=== PATIENT | female | born 1945 | race Caucasian/White ===

== ENCOUNTER → 2017-06-25 08:47 | Outpatient (CLI) | payer MEDICARE, OTHER, SELFPAY ==
--- NOTE | 2017-06-25 08:52 | HPBI_ITS ---
MAMMOGRAPHY - UNILATERAL DIAGNOSTIC: RIGHT BREAST REASON FOR EXAM: Female, 71 years old. Six-month follow-up examination of a nodular density in the right breast. PERTINENT HISTORY: Non-contributory. TECHNIQUE: Digital unilateral breast mario (3D mammographic acquisition) in the CC and MLO projections. 2-D mediolateral oblique (MLO) and craniocaudad (CC) views of both breasts were obtained. CAD: Full Field Digital Mammography with Computer Added Detection was performed. COMPARISON: Comparison is made with prior outside examination in January 04, 2017. FINDINGS: Breast Composition: There are scattered areas of fibroglandular density. There are no dominant masses or suspicious calcifications. There is a persistent 6.1 mm x 6.8 mm slightly irregular nodule in the upper central portion of the right breast. Correlation with ultrasound is recommended. A biopsy may be indicated. No other significant abnormalities are identified. There has been no significant change since the prior study. HPBI/DIAG MAMM W/CAD, UNILAT IMPRESSION: Persistent nodular density in the upper central portion of the right breast as described. Correlation with ultrasound is recommended. ASSESSMENT CATEGORY: BIRADS Category 0: Incomplete. Need additional imaging evaluation. A letter regarding these results will be sent to the patient by the facility within 30 days. Approximately 10% of breast cancers are not detected by mammography. A normal mammogram should not delay biopsy of a clinically suspicious abnormality. Electronically Signed: Jonathan Phillips MD at 10:03 EST Tel [phone], Service support ,
--- NOTE | 2017-06-25 08:53 | US_ITS ---
STUDY: ULTRASOUND BREAST - RIGHT REASON FOR EXAM: Female, 71 years old. Abnormal screening mammogram. TECHNIQUE: Axial and longitudinal images of the RIGHT breast were performed with a high resolution ultrasound transducer. COMPARISON: Comparison is made with prior mammogram done earlier in day. FINDINGS: RIGHT Breast: The 10 to 12:00 position of the breast was examined by ultrasound. Mild retroareolar ductal dilatation. No solid or cystic mass lesion is seen. With the abnormality seen on the mammogram, a biopsy is recommended. US/Breast Limited Unilateral IMPRESSION: Unremarkable ultrasound of the breast. A biopsy of the irregularity seen on the mammogram is recommended. ASSESSMENT CATEGORY: BIRADS Category 4: Suspicious - Biopsy Should Be Considered. A letter regarding these results will be sent to the patient by the facility within 30 days. Electronically Signed: Jonathan Phillips MD at 12:31 EST Tel [phone], Service support ,
== END ==
PROVIDERS: Family Provider Family Medicine; PCP Family Medicine; Visit Provider Family Medicine
DX: R92.8 Other abnormal and inconclusive findings on diagnostic imaging of breast (principal)
CPT/HCPCS: 76642; 77061; 77065; G0279

== ENCOUNTER → 2017-07-19 09:19 | Outpatient (CLI) | payer MEDICARE, OTHER, SELFPAY ==
--- NOTE | 2017-07-19 11:30 | BRBX_PTH ---
PATIENT: CHASTITY SORENSEN LOC: [facility] U#:[id number] AGE/SX: 79/F ROOM: RE07/19/[address]: Dr. Landry Cisneros MD : 1945 BED: DIS: SPEC #: [id number] RECD: 07/19/17 13:51 STATUS: TONNY YARELIS #: [id number] DEBBIE: 07/19/17 11:[address]: Landry Cisneros DEPT: SURGICAL PATHOLOGY RECD BY: Rashad Dexter ENTERED: 07/19/17 13:51 SP TYPE: BREAST BX OTHR DR: Dr. Dianna Alvarez MD Tissues: Right breast, NOS Procedures: Surgery Specimen Level IV HEADER OPERATION: Right stereotactic breast biopsy PRE-OP DIAGNOSIS: Right breast upper central density TISSUE SUBMITTED: Right breast core tissue ISCHEMIC TIME: 1 minute FIXATION TIME: 8 hours MICROSCOPIC DIAGNOSIS Right breast, stereotactic needle core biopsy: Fibrocystic change. Focal intraductal hyperplasia without atypia. No evidence of malignancy. AM:umesh 07/20/17 MICROSCOPIC DESCRIPTION Slides are reviewed. GROSS DESCRIPTION Received is one container labeled with the patient's name and not further designated. The specimen consists of multiple elongated fragments of colyb-yellow fibroadipose tissue that in aggregate measure 7.5 x 3 x 0.3 cm. The entire specimen is submitted in three cassettes. / SJ:umesh 07/19/17 TC:5 CPT: 60607
--- NOTE | 2017-07-19 11:56 | PCM.OPRPT ---
Problem List (1) Abnormal mammogram of right breast Status: Acute Report of Operation Date of Procedure: 07/19/17 Pre-Operative Diagnosis: Mammographic density upper mid right breast Post-Operative Diagnosis: Mammographic density upper mid right breast Surgery/Procedure Performed:: Stereotactic needle core upper mid right breast biopsy Description of Surgical Findings:: Timeout and informed consent was obtained. 72-year-old female was taken to the stereotactic room. She was placed prone on the table. The right breast was placed in the cc view. The density in question was rapidly identified. Stereotactic images were obtained. Digital information was obtained on a single target sites. The breast was prepped with Betadine. 1% lidocaine was used as a local anesthetic. A total of 10 cc was used. Local was instilled. A small stab incision was created. An 8-gauge resolve needle was advanced to prefire depth. Prefire films were obtained demonstrating adequate localization. The device was fired. Multiple cores were obtained from 8:00 through 4:00. Good sampling was achieved. A small marking clip was left at the 12 o'clock position. She was released from the device. Pressure was held for hemostasis. The specimens were transmitted to formalin. Follow-up CC and mediolateral oblique views were obtained. She was given activity and wound care instructions as Steri-Strips Telfa OpSite dressing applied. Further office follow-up can be pending pathology. Progress and prognosis at this point are felt to be good. Findings are likely to be benign and likely recommendations for follow-up mammography at 1 year will be pursued pending pathology. Landry Cisneros M.D., F.A.C.S. Type of Anesthesia:: Local
== END ==
PROVIDERS: Family Provider Family Medicine; PCP Family Medicine; Visit Provider Surgery
DX: N60.11 Diffuse cystic mastopathy of right breast (principal); N60.91 Unspecified benign mammary dysplasia of right breast; R92.8 Other abnormal and inconclusive findings on diagnostic imaging of breast
CPT/HCPCS: 19081; 88305; J7050

== ENCOUNTER → 2018-01-18 09:15 | Outpatient (CLI) | payer MEDICARE, OTHER, SELFPAY | PROVIDERS: Family Provider Family Medicine; PCP Family Medicine; Visit Provider Family Medicine | DX: Z12.31 Encounter for screening mammogram for malignant neoplasm of breast (principal); Z78.0 Asymptomatic menopausal state; Z13.820 Encounter for screening for osteoporosis | CPT/HCPCS: 77063; 77067; 77080 ==

== ENCOUNTER → 2018-09-21 15:41 | Outpatient (CLI) | payer MEDICARE, OTHER, SELFPAY ==
[2017-07-06 09:11] VITALS: BMI 25.8
[2018-09-21 18:29] LABS: CRP < 2.90 mg/L (0.0-3.0)
[2018-09-23 16:07] LABS: Endomysial Antibody IgA Negative (Negative)
[2018-09-26 13:50] LABS: Immunoglobulin A 210 mg/dL (64-422); t-Transglutaminase IgA <2 U/mL (0-3)
== END ==
PROVIDERS: Family Provider Family Medicine; PCP Family Medicine; Referring Provider Internal Medicine Gastroenterology; Visit Provider Internal Medicine Gastroenterology
DX: R10.9 Unspecified abdominal pain (principal); R19.7 Diarrhea, unspecified
CPT/HCPCS: 36415; 82784; 83516; 86140; 86255

== ENCOUNTER → 2019-01-20 | Outpatient (CLI) | payer MEDICARE, OTHER, SELFPAY ==
--- NOTE | 2019-01-20 10:42 | BI_ITS ---
MAMMOGRAPHY - BILATERAL SCREENING REASON FOR EXAM: Female, 73 years old. Routine annual screening examination. PERTINENT HISTORY: Mother with breast cancer. Prior right stereotactic biopsy. TECHNIQUE: Digital bilateral breast quentin (3D mammographic acquisition) in the CC and MLO projections. 2-D mediolateral oblique (MLO) and craniocaudad (CC) views of both breasts were obtained. CAD: Full Field Digital Mammography with Computer Added Detection was performed. COMPARISON: Comparison is made with prior examination dated January 18, 2018 and June 25, 2007. FINDINGS: Breast Composition: There are scattered areas of fibroglandular density. There are no dominant masses or suspicious calcifications. There is a 7.6 mm x 9 mm well-defined nodule in the central deep portion of the left breast. Ultrasound is recommended for further evaluation. A tissue clip marker is seen within a 90 density in the upper central portion of the right breast. No other significant abnormalities are identified. BI/SCREEN MAMM (CAD) W/QUENTIN BILAT IMPRESSION: 7.6 mm x 9 mm well-defined nodule in the central deep portion of the left breast. Correlation with ultrasound is recommended. ASSESSMENT CATEGORY: BIRADS Category 0: Incomplete. Need additional imaging evaluation. A letter regarding these results will be sent to the patient by the facility within 30 days. Approximately 10% of breast cancers are not detected by mammography. A normal mammogram should not delay biopsy of a clinically suspicious abnormality. [id number] Electronically Signed: Jonathan Phillips, at 12:33 EDT , Service support ,
== END | disposition home or self-care (01) ==
LOC: OPBI 10:41
PROVIDERS: Family Provider Family Medicine; PCP Family Medicine; Referring Provider Family Medicine; Visit Provider Family Medicine
DX: Z12.31 Encounter for screening mammogram for malignant neoplasm of breast (principal); Z80.3 Family history of malignant neoplasm of breast
CPT/HCPCS: 77063; 77067

== ENCOUNTER → 2019-01-25 | Outpatient (CLI) | payer MEDICARE, OTHER, SELFPAY ==
--- NOTE | 2019-01-25 14:48 | US_ITS ---
STUDY: ULTRASOUND BREAST - LEFT REASON FOR EXAM: Female, 73 years old. Abnormal screening mammogram. TECHNIQUE: Axial and longitudinal images of the LEFT breast were performed with a high resolution ultrasound transducer. COMPARISON: Comparison is made with prior study dated January 20, 2019. FINDINGS: LEFT Breast: The mammographic abnormality corresponds to retroareolar ductal dilatation. No solid or cystic mass lesion is seen. US/Breast Limited Unilateral IMPRESSION: Retroareolar ductal dilatation. ASSESSMENT CATEGORY: BIRADS Category 2: Benign. A letter regarding these results will be sent to the patient by the facility within 30 days. Electronically Signed: Jonathan Phillips, at 15:35 EDT , Service support ,
== END | disposition home or self-care (01) ==
PROVIDERS: Family Provider Family Medicine; PCP Family Medicine; Referring Provider Family Medicine; Visit Provider Family Medicine
DX: R92.8 Other abnormal and inconclusive findings on diagnostic imaging of breast (principal)
CPT/HCPCS: 76642

== ENCOUNTER → 2020-01-23 10:14 | Outpatient (CLI) | payer MEDICARE, OTHER, SELFPAY ==
--- NOTE | 2020-01-23 10:19 | BI_ITS ---
MAMMOGRAPHY - BILATERAL SCREENING REASON FOR EXAM: Female, 74 years old. Routine annual screening examination. PERTINENT HISTORY: Mother with breast cancer. Prior right stereotactic breast biopsy. TECHNIQUE: Digital bilateral breast quentin (3D mammographic acquisition) in the CC and MLO projections. 2-D mediolateral oblique (MLO) and craniocaudad (CC) views of both breasts were obtained. CAD: Full Field Digital Mammography with Computer Added Detection was performed. COMPARISON: Comparison is made with prior study dated 01/20/2019 and 01/18/2018. FINDINGS: Breast Composition: There are scattered areas of fibroglandular density. There are no dominant masses or suspicious calcifications. Stable 9 mm x 7.6 mm well-defined nodule in the central deep portion of the left breast. Repeat ultrasound is recommended for further evaluation. A tissue clip marker is once again seen within a small nodular density in the central portion of the right breast. No other significant abnormalities are identified. There has been no significant change since the prior study. BI/SCREEN MAMM (CAD) W/QUENTIN BILAT IMPRESSION: Stable bilateral screening mammogram. Repeat sonogram of the left breast for assessment of the centrally located nodule as described. ASSESSMENT CATEGORY: BIRADS Category 0: Incomplete. Need additional imaging evaluation. A letter regarding these results will be sent to the patient by the facility within 30 days. Approximately 10% of breast cancers are not detected by mammography. A normal mammogram should not delay biopsy of a clinically suspicious abnormality. [id number] Electronically Signed: Jonathan Phillips, at 12:40 EDT , Service support ,
== END ==
PROVIDERS: PCP Family Medicine; Referring Provider Family Medicine; Visit Provider Family Medicine
DX: Z12.31 Encounter for screening mammogram for malignant neoplasm of breast (principal)
CPT/HCPCS: 77063; 77067

== ENCOUNTER → 2020-01-30 10:44 | Outpatient (CLI) | payer MEDICARE, OTHER, SELFPAY ==
--- NOTE | 2020-01-30 10:45 | US_ITS ---
STUDY: ULTRASOUND BREAST - LEFT REASON FOR EXAM: Female, 74 years old. Abnormal screening mammogram. TECHNIQUE: Axial and longitudinal images of the LEFT breast were performed with a high resolution ultrasound transducer. # OF IMAGES: 41 COMPARISON: Comparison is made with prior mammogram dated 01/23/2020. FINDINGS: LEFT Breast: The mammographic abnormality corresponds to a 7 mm x 9 mm x 4 mm hypoechoic nodular density. This is not a typical cyst. A biopsy is recommended for further evaluation. Incidental note is made of dilated retroareolar ducts. US/Breast Limited Unilateral IMPRESSION: 7 mm x 9 mm x 4 mm hypoechoic solid nodule in the inferior retroareolar region of the breast. A biopsy is recommended for further evaluation. ASSESSMENT CATEGORY: BIRADS Category 4: Suspicious - Biopsy Should Be Considered. A letter regarding these results will be sent to the patient by the facility within 30 days. Electronically Signed: Jonathan Phillips, at 13:09 EDT , Service support ,
== END ==
PROVIDERS: PCP Family Medicine; Referring Provider Family Medicine; Visit Provider Family Medicine
DX: R92.8 Other abnormal and inconclusive findings on diagnostic imaging of breast (principal)
CPT/HCPCS: 76642

== ENCOUNTER → 2020-02-15 10:05 | Outpatient (CLI) | payer MEDICARE, OTHER, SELFPAY ==
[2020-02-12 13:31] VITALS: BMI 27.3
--- NOTE | 2020-02-15 10:38 | PCM.HP.BLA ---
Problem List (1) Abnormal mammogram of left breast Status: Acute History and Physical Date of Admission: 02/15/20 Intake Visit Reasons: BIRADS 4 LEFT BREAST Chief Complaint: left birads 4 Collection Agent Required: No Is patient in pain?: No Allergies Sulfa (Sulfonamide Antibiotics) Allergy (Intermediate, Verified 02/12/20 14:26) Nausea metronidazole [From Flagyl] Allergy (Mild, Verified 02/12/20 14:26) rash Medications antiarthritic combination no.2 900 mg tablet mg PO .daily ea 07/06/17 [History Confirmed 02/12/20] cholecalciferol (vitamin D3) 50 mcg (2,000 unit) capsule 2,000 unit PO QDAY cap 07/06/17 [History Confirmed 02/12/20] coenzyme [id number] E 100 mg-100 unit capsule cap PO .daily 07/06/17 [History Confirmed 02/12/20] hydrochlorothiazide 25 mg tablet 25 mg PO QAM 07/06/17 [History Confirmed 02/12/20] lovastatin 20 mg tablet 20 mg PO QDAY 07/06/17 [History Confirmed 02/12/20] multivitamin 1 cap PO QAM 07/06/17 [History Confirmed 02/12/20] Is last menstrual period known: No Post menopausal: Yes Patient : No PFSH Medical History Abnormal mammogram of right breast (Acute) Abnormal mammogram (Acute) Hypertension (Chronic) Surgical History History of laparoscopic cholecystectomy (Acute) History of total abdominal hysterectomy (Acute) S/P breast biopsy (Acute) history excision lipoma left flank (Acute) Family History Father Heart disease Mother Breast cancer Cancer ovarian cancer Social History (Updated 02/12/20 @ 16:[address] Landry Cisneros MD) Smoking Status: Never smoker alcohol intake: never substance use type: does not use HPI HPI HPI: CHASTITY SORENSEN, is a 74 F who presents to the office today for surgical consultation regarding an abnormal left mammogram and breast ultrasound. The patient is referred by Dr. Dianna Alvarez and a written copy of my surgical consult and recommendations will be returned to her. 74-year-old female. G2, . Menarche was at age 17. First child was born when she was 22. She did not breast-feed. Her mother developed breast cancer at approximately age 35 and she succumbed to it. The patient's not any breast tenderness. No nipple discharge or bleeding. She reminds me that I have previously done a stereotactic needle core biopsy on the right upper mid. That tissue was benign. The patient states that intermittently she will have discomfort. She was wondering whether the clip could be removed. As noted below on January 23, 2020 left breast showed a stable 9 x 7.6 mm well-defined nodule central portion of the left breast. Tissue marker seen with a small nodular density on the right unchanged. On October 29 left breast ultrasound was performed showing a 7 x 9 x 4 mm hypoechoic solid nodule in the inferior retroareolar area of the left breast BI-RADS Category 4 biopsy recommended. [facility] [address] [place] [address] SCREEN MAMM (CAD) W/QUENTIN BILAT MR#: [id number]:[id number] Name: CHASTITY SORENSEN #:[id number] : [id number] From: Jonathan Phillips MD PCP:Dr. Dianna Alvarez MD Status:[facility] [address] Study:SCREEN MAMM (CAD) W/QUENTIN BILAT Date of Exam:01/23/20 Exam#[id number] Ordering Dr: Dianna Alvarez MD MAMMOGRAPHY - BILATERAL SCREENING REASON FOR EXAM: Female, 74 years old. Routine annual screening examination. PERTINENT HISTORY: Mother with breast cancer. Prior right stereotactic breast biopsy. TECHNIQUE: Digital bilateral breast quentin (3D mammographic acquisition) in the CC and MLO projections. 2-D mediolateral oblique (MLO) and craniocaudad (CC) views of both breasts were obtained. CAD: Full Field Digital Mammography with Computer Added Detection was performed. COMPARISON: Comparison is made with prior study dated 01/20/2019 and 01/18/2018. FINDINGS: Breast Composition: There are scattered areas of fibroglandular density. There are no dominant masses or suspicious calcifications. Stable 9 mm x 7.6 mm well-defined nodule in the central deep portion of the left breast. Repeat ultrasound is recommended for further evaluation. A tissue clip marker is once again seen within a small nodular density in the central portion of the right breast. No other significant abnormalities are identified. There has been no significant change since the prior study. BI/SCREEN MAMM (CAD) W/QUENTIN BILAT IMPRESSION: Stable bilateral screening mammogram. Repeat sonogram of the left breast for assessment of the centrally located nodule as described. ASSESSMENT CATEGORY: BIRADS Category 0: Incomplete. Need additional imaging evaluation. A letter regarding these results will be sent to the patient by the facility within 30 days. Approximately 10% of breast cancers are not detected by mammography. A normal mammogram should not delay biopsy of a clinically suspicious abnormality. [id number] Electronically Signed: Jonathan Phillips, at 12:40 EDT , Service support , [facility] Imaging Services [address] [place] [id number] Breast Limited Unilateral MR#: [id number]:[id number] Name: CHASTITY SORENSENmiguel #:[id number] : 1946F [id number] From: Jonathan Phillips MD PCP:Dr. Dianna Alvarez MD Status:[facility] Study:Breast Limited Unilateral Date of Exam:01/30/20 Exam#[id number] Ordering Dr: Dianna Alvarez MD STUDY: ULTRASOUND BREAST - LEFT REASON FOR EXAM: Female, 74 years old. Abnormal screening mammogram. TECHNIQUE: Axial and longitudinal images of the LEFT breast were performed with a high resolution ultrasound transducer. # OF IMAGES: 41 COMPARISON: Comparison is made with prior mammogram dated 01/23/2020. FINDINGS: LEFT Breast: The mammographic abnormality corresponds to a 7 mm x 9 mm x 4 mm hypoechoic nodular density. This is not a typical cyst. A biopsy is recommended for further evaluation. Incidental note is made of dilated retroareolar ducts. US/Breast Limited Unilateral IMPRESSION: 7 mm x 9 mm x 4 mm hypoechoic solid nodule in the inferior retroareolar region of the breast. A biopsy is recommended for further evaluation. ASSESSMENT CATEGORY: BIRADS Category 4: Suspicious - Biopsy Should Be Considered. A letter regarding these results will be sent to the patient by the facility within 30 days. Electronically Signed: Jonathan Phillips, at 13:09 EDT , Service support , HPI HPI HPI: CHASTITY SORENSEN, is a 74 F who presents to the office today for ROS General General: No weight change, appetite, fatigue, colon cancer, breast cancer or weakness HEENT HEENT: No difficulty swallowing, eye injury, eye surgery, swollen glands or hoarseness Endo Endocrine: No thyroid disease, diabetes mellitus, thyroid cancer, Hair loss, heat intolerance or cold intolerance Breast Breast: Yes abnormal mammogram and abnormal US; no left breast lump, right breast lump, nipple discharge, breast pain or breast enlargement Musc Musculoskeletal: No back problems, arthritis, rheumatoid arthritis, gout or joint pain Cardio Cardiovascular: Yes high blood pressure; no murmur, pacemaker, heart disease, atrial fibrillation, heart attack, heart stent, palpitations, shortness of breat with exertion or chest pain Psych Psychiatric: No depression, anxiety or hearing voices Resp Respiratory: No shortness of breath, No sleep apnea, No cough, No COPD, No asthma, No emphysema, No wheezing Gastro Gastrointestinal: No abdominal pain, No nausea or vomiting, No diarrhea, No constipation, No blood in stool, No acid reflux, No hemorrhoids, No ulcers, Yes gallbladder problem, No black,tarry stools [place] Hematologic: No blood thinners, No blood disorders, No bleeding, No anemia, No blood clots Neuro Neurologic: No weakness Exam Const General: cooperative, healthy appearing, comfortable, no acute distress Nutritional Appearance: average body habitus Orientation: alert, awake, oriented x3 HENMT Head: normal to inspection Chest Breast Palpation: No nipple discharge Other: Right breast: No focal mass. No nipple discharge. No axillary or clavicular adenopathy Left breast: No focal mass. No nipple discharge. No axillary or clavicular adenopathy Resp Effort & Inspection: normal respiratory effort Cardio Rate: regular rate Rhythm: regular rhythm Heart Sounds: no murmurs Office Procedures Biopsy Provider Documentation Ultrasound-guided fine-needle aspiration left breast inferior inferior areola. Timeout and informed consent was obtained. The patient was taken to the procedure room placed upon the table left shoulder roll was placed. The left breast was prepped with Betadine. Ultrasound was performed and tried to be compared to the preoperative ultrasound. This was technically difficult. I felt that the 9 mm oblong lesion identified on ultrasound was identified. There was a slightly more vague item identified which I could not get to remain consistently. The item that could be identified was treated with local anesthetic 1% lidocaine mixed 50-50 with 0.5% Marcaine I was able to advance an 18-gauge under ultrasound guidance and aspirate fluid and collapse of the lesion. However on reinspecting the mammogram and ultrasound I cannot be assured that the mammographic lesion actually correlates with the ultrasound area that I aspirated. There were no apparent complications. The fluid was a dark green and after instructions with the patient was discarded Biopsy Breast Biopsy: [id number] Breast Cyst Asp Procedure Time Out Time Out Informed consent given: Yes Consent signed: Yes Time out checklist: patient, procedure, site marked/identified, positioning of patient, supplies available, allergies confirmed, team agrees on procedure Time out staff in room: Yes Time out verified: Yes Time out date: 02/12/20 Time out time: 14:30 Assessment & Plan Problems 1. Abnormal mammogram of left breast R92.8 2. Abnormal ultrasound of breast R92.8 Plan Abnormal left mammogram and abnormal breast ultrasound. Although I was able to under ultrasound guidance aspirate a infra areolar cyst it is not clear to me that this correlates with the mammographic imaging. I recommended the patient a stereotactic needle core left breast biopsy. We have discussed the technique, benefit, risk, alternatives. No guarantees of success have been offered. The patient is aware that the procedure will be aborted if the previously identified mammographic image has resolved. The patient notes fleeting discomfort of the right breast. I cannot assure her that the small marking clip is the source. I have discussed with her technique of stereotactic vertical excision with subsequent excisional biopsy. As her discomfort in the right breast is intermittent fleeting it is my personal belief that this intervention and risk with outweigh the benefit. In no way can I confirm that is actually the clip causing her discomfort. She is aware that if a solid lesion is identified on the left that a marking clip will be placed. She concurs and approves. She has had an opportunity to ask and have questions answered. We will schedule and proceed at her discretion. The mammographic density is infra-areolar slightly more deeply placed left breast Copy Dr. Dianna Cisneros M.D., F.A.C.S. Orders Orders: Biopsy Today R92.8 Coding Level of Care Code Attention Pipe Fitter Supervisor Maintenance Diagnoses Abnormal mammogram of left breast R92.8 Abnormal ultrasound of breast R92.8 Additional Codes Biopsy - Breast Biopsy: 81213 Breast Cyst Asp () I have re-examined the patient. There are no clinical changes since date of exam. Procedure Criteria Procedure Type: Elective COVID Risk Discussion: The surgeon/proceduralist and patient have discussed in detail the risk of exposure to and/or potential harm posed by the COVID-19 virus with having a surgery/procedure at this time versus the risk of delaying the surgery/procedure. It is not possible to know either the risk of delaying the surgery or procedure or chance of getting an infection with perfect accuracy, but a joint decision was made between the patient and the surgeon/proceduralist to proceed at this time with the scheduled surgery/procedure as indicated on the consent form.
--- NOTE | 2020-02-15 11:25 | PCM.OPRPT ---
Problem List (1) Abnormal mammogram of left breast Status: Acute Report of Operation Date of Procedure: 02/15/20 Pre-Operative Diagnosis: Density left breast mammogram Post-Operative Diagnosis: Resolved density left breast mammogram subsequent to office performed ultrasound-guided fine-needle aspiration Surgery/Procedure Performed:: Aborted stereotactic needle core left breast biopsy as lesion of concern resolved Description of Surgical Findings:: 74-year-old female was taken to the stereotactic room placed prone on the table left breast was placed in the lateral medial view the density in question could not be identified so then a traditional left lateral mammogram was obtained. This demonstrated the density had resolved. It was there for felt that the ultrasound guided fine needle aspiration that was performed in the office 2 days prior had actually resolved the area of concern. The stereotactic procedure was aborted. Patient will obtain bilateral mammograms at 1 year. Landry Cisneros M.D., F.A.C.S.
--- NOTE | 2020-02-15 11:32 | BI_ITS ---
MAMMOGRAPHY - UNILATERAL DIAGNOSTIC: LEFT BREAST REASON FOR EXAM: Female, 74 years old. Left breast aspiration. PERTINENT HISTORY: Mother with breast cancer. TECHNIQUE: Digital unilateral breast mario (3D mammographic acquisition) in the CC and MLO projections. 2-D mediolateral oblique (MLO) and craniocaudad (CC) views of both breasts were obtained. CAD: Full Field Digital Mammography with Computer Added Detection was performed. COMPARISON: Comparison is made with prior mammogram dated 01/23/2020. FINDINGS: Breast Composition: There are scattered areas of fibroglandular density. The previously seen 9 mm x 7.6 mm well-defined nodule in the central portion of the left breast has been drained. No other significant abnormalities are identified. BI/DIAG MAMM W/CAD, UNILAT IMPRESSION: Successful drainage of the 9 mm x 7.6 mm nodule in the central deep portion of the left breast. ASSESSMENT CATEGORY: BIRADS Category 2: Benign. A letter regarding these results will be sent to the patient by the facility within 30 days. Approximately 10% of breast cancers are not detected by mammography. A normal mammogram should not delay biopsy of a clinically suspicious abnormality. Electronically Signed: Jonathan Phillips, at 13:00 EDT , Service support ,
== END ==
PROVIDERS: PCP Family Medicine; Referring Provider Surgery; Visit Provider Surgery
DX: R92.8 Other abnormal and inconclusive findings on diagnostic imaging of breast (principal)
CPT/HCPCS: 77065

== ENCOUNTER → 2021-04-17 13:53 | Outpatient (CLI) | payer MEDICARE, OTHER, SELFPAY ==
--- NOTE | 2021-04-17 13:57 | BI_ITS ---
MAMMOGRAPHY - BILATERAL SCREENING REASON FOR EXAM: Female, 75 years old. Routine annual screening examination. PERTINENT HISTORY: Non-contributory. TECHNIQUE: Digital bilateral breast quentin (3D mammographic acquisition) in the CC and MLO projections. 2-D mediolateral oblique (MLO) and craniocaudad (CC) views of both breasts were obtained. CAD: Full Field Digital Mammography with Computer Added Detection was performed. COMPARISON: Comparison is made with prior study dated 01/23/2020 and 01/20/2019. FINDINGS: Breast Composition: There are scattered areas of fibroglandular density. There are no dominant masses or suspicious calcifications. Tissue clip marker clips again seen within the faint nodular density in the upper central portion of the right breast. The previously seen 9 mm x 7.6 mm well-defined nodule in the central deep portion of the left breast is not seen at this time No other significant abnormalities are identified. There has been no significant change since the prior study. BI/SCRN MAMM (CAD)W/QUENTIN BILAT IMPRESSION: Stable bilateral screening mammogram. Yearly follow-up mammogram recommended. (A) ASSESSMENT CATEGORY: BIRADS Category 2: Benign. A letter regarding these results will be sent to the patient by the facility within 30 days. Approximately 10% of breast cancers are not detected by mammography. A normal mammogram should not delay biopsy of a clinically suspicious abnormality. [id number] Electronically Signed: Jonathan Phillips MD at 15:07 EST , Service support ,
== END ==
PROVIDERS: PCP Family Medicine; Visit Provider Family Medicine
DX: Z12.31 Encounter for screening mammogram for malignant neoplasm of breast (principal)
CPT/HCPCS: 77063; 77067

== ENCOUNTER → 2022-04-29 | Outpatient (CLI) | payer MEDICARE, OTHER, SELFPAY ==
--- NOTE | 2022-04-29 09:58 | BI_ITS ---
MAMMOGRAPHY - BILATERAL SCREENING REASON FOR EXAM: Female, 76 years old. Routine annual screening examination. PERTINENT HISTORY: Mother with breast cancer. Prior left stereotactic breast biopsy. TECHNIQUE: Digital bilateral breast quentin (3D mammographic acquisition) in the CC and MLO projections. 2-D mediolateral oblique (MLO) and craniocaudad (CC) views of both breasts were obtained. CAD: Full Field Digital Mammography with Computer Added Detection was performed. COMPARISON: Comparison is made with prior examination of 04/17/2021 and 01/23/2020. FINDINGS: Breast Composition: There are scattered areas of fibroglandular density. There are no dominant masses or suspicious calcifications. A tissue clip marker is once again seen within a faint nodular density in the upper central portion of the right breast. This most likely represents a small lymph node. No other significant abnormalities are identified. There has been no significant change since the prior study. BI/SCRN MAMM (CAD)W/QUENTIN BILAT IMPRESSION: Stable bilateral screening mammogram. Yearly follow-up mammogram recommended. (A) ASSESSMENT CATEGORY: BIRADS Category 2: Benign. A letter regarding these results will be sent to the patient by the facility within 30 days. Approximately 10% of breast cancers are not detected by mammography. A normal mammogram should not delay biopsy of a clinically suspicious abnormality. [id number] Electronically Signed: Jonathan Phillips MD at 10:58 EST ,
== END | disposition home or self-care (01) ==
LOC: OPBI 09:55
PROVIDERS: PCP Family Medicine; Visit Provider Family Medicine
DX: Z12.31 Encounter for screening mammogram for malignant neoplasm of breast (principal)
CPT/HCPCS: 77063; 77067

== ENCOUNTER → 2023-06-22 | Outpatient (CLI) | payer MEDICARE, OTHER, SELFPAY ==
--- NOTE | 2023-06-22 10:37 | BI_ITS ---
MAMMOGRAPHY - BILATERAL SCREENING REASON FOR EXAM: Female, 77 years old. Routine annual screening examination. PERTINENT HISTORY: Mother with breast cancer. History of prior right breast aspiration and stereotactic biopsy. TECHNIQUE: Digital bilateral breast quenitn (3D mammographic acquisition) in the CC and MLO projections. 2-D mediolateral oblique (MLO) and craniocaudad (CC) views of both breasts were obtained. CAD: Full Field Digital Mammography with Computer Added Detection was performed. COMPARISON: Comparison is made with prior study dated April 29, 2022 and April 17, 2021. FINDINGS: Breast Composition: There are scattered areas of fibroglandular density. There is a 7.7 mm x 6.8 mm nodule in the central portion of the left breast. Correlation with ultrasound is recommended. A tissue clip marker is seen in the anterior upper slightly lateral aspect of the right breast from prior biopsy. No other significant abnormalities are identified. BI/SCRN MAMM (CAD)W/QUENTIN BILAT IMPRESSION: Nodular density in the central portion of the left breast as described. Correlation with ultrasound is recommended. ASSESSMENT CATEGORY: BIRADS Category 0: Incomplete. Need additional imaging evaluation. A letter regarding these results will be sent to the patient by the facility within 30 days. Approximately 10% of breast cancers are not detected by mammography. A normal mammogram should not delay biopsy of a clinically suspicious abnormality. [id number] Electronically Signed: Jonathan Phillips MD at 12:57 EST ,
== END | disposition home or self-care (01) ==
LOC: OPBI 10:35
PROVIDERS: PCP Family Medicine; Referring Provider Family Medicine; Visit Provider Family Medicine
DX: Z12.31 Encounter for screening mammogram for malignant neoplasm of breast (principal)
CPT/HCPCS: 77063; 77067

== ENCOUNTER → 2023-06-28 | Outpatient (CLI) | payer MEDICARE, OTHER, SELFPAY ==
--- NOTE | 2023-06-28 10:52 | US_ITS ---
STUDY: ULTRASOUND BREAST - LEFT REASON FOR EXAM: Female, 77 years old. Abnormal screening mammogram. TECHNIQUE: Axial and longitudinal images of the LEFT breast were performed with a high resolution ultrasound transducer. # OF IMAGES: 16 COMPARISON: Comparison is made with prior mammogram dated June 22, 2023. FINDINGS: LEFT Breast: The mammographic abnormality corresponds to a 1.1 cm x 0.7 cm x 0.4 cm benign-appearing lymph node at 11:00 position of the breast at 5 cm from nipple. There is also evidence of dilated retroareolar ducts. US/Breast Limited Unilateral IMPRESSION: The mammographic abnormality corresponds to 1.1 cm x 0.7 cm x 0.4 cm benign-appearing lymph node at the 11:00 position of the breast at 5 cm from the nipple. Retroareolar ductal dilatation. ASSESSMENT CATEGORY: BIRADS Category 2: Benign. A letter regarding these results will be sent to the patient by the facility within 30 days. Electronically Signed: Jonathan Phillips MD at 11:53 EST ,
== END | disposition home or self-care (01) ==
LOC: OPUS 10:51
PROVIDERS: PCP Family Medicine; Referring Provider Family Medicine; Visit Provider Family Medicine
DX: R92.8 Other abnormal and inconclusive findings on diagnostic imaging of breast (principal)
CPT/HCPCS: 76642